=== PATIENT | female | born 1970 | race Caucasian/White ===

== ENCOUNTER 2016-05-02 23:26 | Emergency (ER) | payer OTHER ==
[~2016-05-02] VITALS: Ht 157.5 cm; Wt 60.0 kg
[2016-05-02 23:30] VITALS: BP 141/90; PULSE 98; RESP 15; TEMP 98; O2SAT 99
[2016-05-03 04:17] VITALS: BP 105/55; PULSE 74; RESP 16; TEMP 98.1; O2SAT 99
[2016-05-03 05:30] VITALS: BP 118/72; PULSE 69; RESP 16; TEMP 98.2; O2SAT 99
--- NOTE | 2016-05-03 05:36 | PD ---
HPI Chief Complaint: Neuro Symptoms/ Deficits Time Seen by Provider: 05:34 Travel History International Travel<30 days: No Contact w/Intl Traveler<30days: No Traveled to known affect area: No History of Present Illness HPI 46-year-old female came to the emergency room with history of 2 year ongoing abdominal pain on the right upper quadrant area. Her is here to be seen in the emergency room and patient thought she will get her concern addressed as well. She is also complaining of headache and some stuttering. Vital signs were stable. Pain is nonradiating and localized to the right upper quadrant area. No associated nausea vomiting. Vital signs are stable. [facility] Past Medical History Narrative Medical List of her past medical history as reviewed from the nursing note. Cerebrovascular Accident: Yes ?: Not LMP: 04/14/16 Social History Tobacco Use: Yes Allergies-Medications (Allergen,Severity, Reaction): Coded Allergies: Mobic (Verified Allergy, Intermediate, Burning, 05/02/16) Niacin (Verified Adverse Reaction, Intermediate, 05/02/16) Comments List of her allergies as reviewed from the nursing note. Reported Meds & Prescriptions Reported Meds & Active Scripts Active Reported Glucose (Dextrose) 4 Gm Chew 4 Gm CHEW DIRECTED Prozac (Fluoxetine HCl) 40 Mg Cap 40 Mg PO DAILY Narrative Medication List of her home medications reviewed from the nursing note. Review of Systems Except as stated in HPI: all other systems reviewed are Neg Physical Exam Narrative GENERAL: Awake, alert, anxious, mild distress SKIN: Warm and dry. HEAD: Atraumatic. Normocephalic. EYES: Pupils equal and round. No scleral icterus. No injection or drainage. ENT: No nasal bleeding or discharge. Mucous membranes pink and moist. NECK: Trachea midline. No JVD. CARDIOVASCULAR: Regular rate and rhythm. No murmur appreciated. RESPIRATORY: No accessory muscle use. Clear to auscultation. Breath sounds equal bilaterally. GASTROINTESTINAL: Abdomen soft, non-tender, nondistended. Hepatic and splenic margins not palpable. MUSCULOSKELETAL: No obvious deformities. No clubbing. No cyanosis. No edema. NEUROLOGICAL: Awake and alert. No obvious cranial nerve deficits. Motor grossly within normal limits. Normal speech. PSYCHIATRIC: Appropriate mood and affect; insight and judgment normal. Data Data Last Documented VS Vital Signs Date Time Temp Pulse Resp B/P Pulse Ox O2 Delivery O2 Flow Rate FiO2 2/3/17 05:30 98.2 69 16 118/72 99 05/03/16 04:[address] Brain W/O Iv Contrast(Rout) (05/03/16 ) Electrocardiogram (05/03/16 05:45) Complete Blood Count With Diff (05/03/16 05:45) Comprehensive Metabolic Panel (05/03/16 05:45) Troponin I (05/03/16 05:45) Chest, Single Ap (05/03/16 05:45) Ecg Monitoring (05/03/16 05:45) Iv Access Insert/Monitor (05/03/16 05:45) Oximetry (05/03/16 05:45) Sodium Chloride 0.9% Flush (Ns Flush) (05/03/16 05:45) Labs Laboratory Tests Test 05/03/16 05:48 White Blood Count 8.7 TH/MM3 Red Blood Count 3.75 MIL/MM3 Hemoglobin 12.2 GM/DL Hematocrit 35.3 % Mean Corpuscular Volume 94.3 FL Mean Corpuscular Hemoglobin 32.5 PG Mean Corpuscular Hemoglobin 34.5 % Concent Red Cell Distribution Width 13.4 % Platelet Count 218 TH/MM3 Mean Platelet Volume 10.3 FL Neutrophils (%) (Auto) 53.4 % Lymphocytes (%) (Auto) 36.1 % Monocytes (%) (Auto) 6.9 % Eosinophils (%) (Auto) 3.0 % Basophils (%) (Auto) 0.6 % Neutrophils # (Auto) 4.7 TH/MM3 Lymphocytes # (Auto) 3.2 TH/MM3 Monocytes # (Auto) 0.6 TH/MM3 Eosinophils # (Auto) 0.3 TH/MM3 Basophils # (Auto) 0.1 TH/MM3 CBC Comment DIFF FINAL Differential Comment Sodium Level 141 MEQ/L Potassium Level 4.2 MEQ/L Chloride Level 111 MEQ/L Carbon Dioxide Level 25.2 MEQ/L Anion Gap 5 MEQ/L Blood Urea Nitrogen 18 MG/DL Creatinine 0.78 MG/DL Estimat Glomerular Filtration 80 ML/MIN Rate Random Glucose 85 MG/DL Calcium Level 8.4 MG/DL Total Bilirubin 0.3 MG/DL Aspartate Amino Transf 28 U/L (AST/SGOT) Alanine Aminotransferase 15 U/L (ALT/SGPT) Alkaline Phosphatase 78 U/L Troponin I LESS THAN 0.02 NG/ML Total Protein 6.5 GM/DL Albumin 3.2 GM/DL MDM Medical Decision Making Medical Screen Exam Complete: Yes Emergency Medical Condition: Yes Medical Record Reviewed: Yes Differential Diagnosis Acute pancreatitis, acute cholecystitis, chronic abdominal pain Narrative Course 7:20 AM all the test results are within normal limit especially her liver function tests and lipase. This is a chronic pain for the patient and I am happy with the workup so far. I did not extend to pursue this any further. She needs to go to her primary care and get it addressed as an outpatient. I will discharge this patient. Procedures EKG Prior to Arrival: No Diagnosis Primary Impression: acute on chronic abdominal pain Additional Impression: Abdominal pain Qualified Code: R10.11 - Right upper quadrant abdominal pain Referrals: Primary Care Physician 3 days Additional Instructions: Please return to the ER if the condition worsens or any other new concerns. Otherwise follow-up with your primary care. Med/Other Pt SpecificInfo: No Change to Meds Disposition: 01 DISCHARGE HOME Condition: Stable John Encarnacion MD May 03, 2016 05:36
[2016-05-03] MEDS ORDERED: SODIUM CHLORIDE 0.9% FLUSH 5 ML FLUSH IVF PRN (05:45)
[2016-05-03] MEDS ORDERED: GLUC4CHW CHEW (05:47)
[2016-05-03] MEDS ORDERED: PROZ40CA PO (05:47)
[2016-05-03 06:11] LABS: AUTOMATED NEUTROPHIL # 4.7 TH/MM3 (1.8-7.7); BASOPHIL # 0.1 TH/MM3 (0-0.2); BASOPHIL % 0.6 % (0.0-2.0); EOSINOPHIL # 0.3 TH/MM3 (0-0.4); HEMATOCRIT 35.3 % (35.0-46.0); HEMO FLAGS DIFF FINAL; LYMPH % 36.1 % (9.0-44.0); LYMPHOCYTE # 3.2 TH/MM3 (1.0-4.8); MEAN CELL VOLUME 94.3 FL (80.0-100.0); MEAN CORPUSCULAR HEMOGLOBIN 32.5 PG (27.0-34.0); MEAN CORPUSCULAR HGB CONC 34.5 % (32.0-36.0); MONO % 6.9 % (0.0-8.0); NEUT % 53.4 % (16.0-70.0); PLATELET COUNT 218 TH/MM3 (150-450); RED BLOOD COUNT 3.75 MIL/MM3 (4.00-5.30); RED CELL DISTRIBUTION WIDTH 13.4 % (11.6-17.2); WHITE BLOOD COUNT 8.7 TH/MM3 (4.0-11.0)
--- NOTE | 2016-05-03 06:13 | RADRPT ---
EXAM DATE/TIME: 05/03/2016 05:48 [facility] COMPARISON: No previous studies available for comparison. INDICATIONS : Slurred speech. RADIATION DOSE: 35.85 CTDIvol (mGy) MEDICAL HISTORY : cva SURGICAL HISTORY : None. ENCOUNTER: Initial ACUITY: 1 day PAIN SCALE: 7/10 LOCATION: cranial TECHNIQUE: Multiple contiguous axial images were obtained of the head. Using automated exposure control and adj ustment of the mA and/or kV according to patient size, radiation dose was kept as low as reasonably a chievable to obtain optimal diagnostic quality images. FINDINGS: CEREBRUM: The ventricles are normal. No evidence of midline shift, mass lesion, hemorrhage or acute infarction . No extra-axial fluid collections are seen. POSTERIOR FOSSA: The cerebellum and brainstem are intact. The 4th ventricle is midline. The cerebellopontine angle i s unremarkable. EXTRACRANIAL: There has been right scleral banding. Visualized sinuses are clear. SKULL: The calvaria is intact. No evidence of skull fracture. CONCLUSION: No acute intracranial abnormality is identified. Doron Mckenzie MD on May 03, 2016 at 6:09 Board Certified Radiologist. This report was verified electronically.
--- NOTE | 2016-05-03 06:30 | RADRPT ---
EXAM DATE/TIME: 05/03/2016 05:55 [facility] COMPARISON: No previous studies available for comparison. INDICATIONS : Patient complains of right flank pain. MEDICAL HISTORY : CVA. SURGICAL HISTORY : None. ENCOUNTER: Initial ACUITY: 1 day PAIN SCORE: 4/10 LOCATION: Right Flank FINDINGS: Portable AP view of the chest demonstrates a normal-sized cardiac silhouette. No effusion, consolidat ion, or pneumothorax is visualized. The bones and soft tissues demonstrate no acute abnormality. CONCLUSION: No acute cardiopulmonary abnormality is identified. Doron Mckenzie MD on May 03, 2016 at 6:28 Board Certified Radiologist. This report was verified electronically.
[2016-05-03 06:36] LABS: ALKALINE PHOSPHATASE 78 U/L (45-117); TOTAL BILIRUBIN ADULT 0.3 MG/DL (0.2-1.0)
[2016-05-03 06:52] LABS: ALT (GPT) 15 U/L (10-53); ANION GAP 5 MEQ/L (5-15); AST (GOT) 28 U/L (15-37); BICARBONATE 25.2 MEQ/L (21.0-32.0); BLOOD UREA NITROGEN 18 MG/DL (7-18); CHLORIDE 111 MEQ/L (98-107); GLOMERULAR FILTRATION RATE 80 ML/MIN (>89); POTASSIUM 4.2 MEQ/L (3.5-5.1); SODIUM (NA) 141 MEQ/L (136-145)
--- NOTE | 2016-05-03 13:39 | EKG ---
Date Performed: 05/03/2016 Time Performed: 06:27:14 PTAGE: 46 years EKG: Sinus rhythm NORMAL ECG NO PREVIOUS TRACING DOCTOR: Jayda Tenorio Interpretating Date/Time 05/03/2016 13:35:02
== END 2016-05-03 07:54 | disposition home or self-care (01) ==
LOC: NEPE 23:26
DX: R10.11 Right upper quadrant pain (principal); R51 Headache; Z72.0 Tobacco use; Z86.73 Personal history of transient ischemic attack (TIA), and cerebral infarction without residual deficits
CPT/HCPCS: 70450; 71010; 80053; 84484; 85025; 93005

== ENCOUNTER 2016-06-02 14:21 | Emergency (ER) | payer OTHER ==
[~2016-06-02] VITALS: Ht 157.5 cm; Wt 62.0 kg
[~2016-06-02 14:21] MED LIST: GLUC4CHW CHEW; PROZ40CA PO
[2016-06-02 14:35] VITALS: BP 126/70; PULSE 74; RESP 15; TEMP 98.1; O2SAT 98
[2016-06-02] MEDS ORDERED: FAMO1TAB37 PO (14:36)
[2016-06-02] MEDS ORDERED: BACT800T5 PO (14:37)
[2016-06-02] MEDS ORDERED: CEPH-460 PO (14:37)
--- NOTE | 2016-06-02 14:37 | PD ---
HPI Chief Complaint: Bite or Sting Time Seen by Provider: 14:33 Travel History International Travel<30 days: No Contact w/Intl Traveler<30days: No Traveled to known affect area: No History of Present Illness HPI 46-year-old female presents to the emergency Department with complaint of a possible spider bite to the top of her left foot that she woke up with this morning's. She says she she got bit by a brown recluse. She did not see an actual spider or insect and doesn't know exactly what the wound is from. She reports being up-to-date on her tetanus vaccination. 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 Denies fever, chills, nausea, vomiting. Denies paresthesias, loss of sensation, decreased range of motion, decreased strength to the affected extremity. Has not taken any medications or drainage to alleviate her symptoms. Allergies Timoptic and niacin. No other modifying factors or associated signs and symptoms. PFSH Past Medical History ADHD: Yes Bipolar Disorder: Yes Anxiety: Yes Depression: Yes Cancer: Yes (cervical) High Cholesterol: Yes COPD: Yes Cerebrovascular Accident: Yes Fibromyalgia: Yes Hepatitis: Yes (hep c ) Migraines: Yes Schizophrenia: Yes Triglycerides - High: Yes ?: Not : 6 Para: 3 Miscarriage: 3 Past Surgical History Eye Surgery: Yes Other Surgery: Yes (eptopic ) Social History Alcohol Use: Yes (rarely) Tobacco Use: Yes Substance Use: No Allergies-Medications (Allergen,Severity, Reaction): Coded Allergies: Mobic (Verified Allergy, Intermediate, Burning, 06/02/16) Niacin (Verified Adverse Reaction, Intermediate, 06/02/16) Reported Meds & Prescriptions Reported Meds & Active Scripts Active Keflex (Cephalexin) 500 Mg Cap 500 Mg PO Q6H 7 Days Bactrim DS (Sulfamethoxazole-Trimethoprim) 800-160 Mg Tab 1 Tab PO BID 7 Days Reported Pepcid (Famotidine) 20 Mg Tab 10 Mg PO BID Review of Systems Except as stated in HPI: all other systems reviewed are Neg Physical Exam Narrative GENERAL: Well-nourished, well-developed female patient, in no acute distress SKIN: Warm and dry. Dorsal aspect of left foot with approximately 2 cm diameter scabbed wound that is surrounded by an area of erythema; the wound is without edema or drainage. The surrounding erythema is possible start of infection. Large healed scar noted to the dorsal aspect of the left foot that extends to the left lateral ankle area. Left lower extremity is supple and non- tense with 2+ pedal pulse and sensory intact and without erythema or edema. HEAD: Atraumatic. Normocephalic. EYES: Pupils equal and round. No scleral icterus. No injection or drainage. ENT: Mucosa pink and moist. Airway patent. NECK: Trachea midline. CARDIOVASCULAR: Regular rate. RESPIRATORY: No accessory muscle use. GASTROINTESTINAL: Flat. MUSCULOSKELETAL: No obvious deformities. No clubbing. No cyanosis. No edema. NEUROLOGICAL: Awake and alert. Oriented 3. No obvious cranial nerve deficits. Motor grossly within normal limits. Normal speech. PSYCHIATRIC: Appropriate mood and affect; insight and judgment normal. Data Data Last Documented VS Vital Signs Date Time Temp Pulse Resp B/P Pulse Ox O2 Delivery O2 Flow Rate FiO2 06/02/16 14:35 98.1 74 15 126/70 98 MDM Medical Decision Making Medical Screen Exam Complete: Yes Emergency Medical Condition: Yes Medical Record Reviewed: Yes Differential Diagnosis Spider bite, cellulitis, abrasion Narrative Course 46-year-old female physical exam consistent with a closed wound to the dorsal aspect of the left foot. There is an area of erythema surrounding the wound that may be significant to the beginning of infection. The wound is scabbed over and without drainage or edema. The left lower extremity supple and non- tense with 2+ pedal pulse and sensory intact without erythema or edema. The patient is afebrile and nontoxic-appearing. She denies fever, chills, nausea, vomiting. Patient up-to-date on tetanus vaccination. She does have history of MRSA. I will prescribe the patient Keflex and Bactrim for home. Keflex and Bactrim prescribed for home. Patient verbalizes understanding and agreement with treatment plan. Patient is medically cleared and stable for discharge. Discussed reasons to return to the emergency department. Instructed patient to follow up with primary care provider. Patient agrees with treatment plan. The patients vital signs are stable and the patient is stable for outpatient follow- up and treatment. Patient discharged home, stable and in no acute distress. Diagnosis Primary Impression: Closed wound Referrals: Primary Care Physician Patient Instructions: Acute Wound Care (ED), General Instructions Additional Instructions: Refer to acute wound care instructions in your discharge instructions Keep area clean and dry Topical antibiotic ointment as directed and as needed for wound care Follow up with primary care provider Return to the emergency department immediately with worsening of symptoms Med/Other Pt SpecificInfo: Prescription(s) given Scripts Cephalexin (Keflex)500 Mg [id number] Mg PO Q6H 7 Days Ref 0 Prov:Leila Sampson 06/02/16 Sulfamethoxazole-Trimethoprim (Bactrim DS)800-160 Mg Tab1 Tab PO BID 7 Days Ref 0 Prov:Leila Sampson 06/02/16 Disposition: 01 DISCHARGE HOME Condition: Stable Leila Sampson Jun 02, 2016 14:37
== END 2016-06-02 14:47 | disposition home or self-care (01) ==
LOC: NEPB 14:21
DX: L98.9 Disorder of the skin and subcutaneous tissue, unspecified (principal)
CPT/HCPCS: 99282

== ENCOUNTER 2016-06-07 07:20 | Emergency (ER) | payer OTHER ==
[~2016-06-07] VITALS: Ht 157.5 cm; Wt 80.0 kg
[~2016-06-07 07:20] MED LIST changes: +BACT800T5 PO; +CEPH-460 PO; +FAMO1TAB37 PO; -GLUC4CHW CHEW; -PROZ40CA PO
[2016-06-07 07:22] VITALS: BP 111/71; PULSE 104; RESP 16; TEMP 98.1; O2SAT 98
--- NOTE | 2016-06-07 07:40 | PD ---
HPI Chief Complaint: Cold / Flu Symptoms Time Seen by Provider: 07:40 Travel History International Travel<30 days: No Contact w/Intl Traveler<30days: No Traveled to known affect area: No History of Present Illness HPI 46-year-old female presents to the emergency Department with complaint of nasal congestion, cough 4 days. She has history of COPD and reports chest tightness and shortness of breath with coughing exacerbations. Patient has albuterol inhaler but has not been using it. Reports subjective fever and chills. Reports body aches. Has not taken her temperature and cannot report MAXIMUM TEMPERATURE. Denies nausea, vomiting, abdominal pain. Denies history of DVT/ PE. Denies leg edema. Denies hemoptysis. Denies recent travel, trauma, hospitalization, surgery. Denies oral contraception. Has not taken any medications or tried any treatments to alleviate her symptoms. No one else sick like her. Did not receive the influenza vaccine. Reports tobacco use daily. Allergies to Motrin, niacin. History of COPD and hypoglycemia. Does not have an established primary care provider. No other modifying factors or associated signs and symptoms. PFSH Past Medical History ADHD: Yes Bipolar Disorder: Yes Anxiety: Yes Depression: Yes Cancer: Yes (cervical) High Cholesterol: Yes COPD: Yes Cerebrovascular Accident: Yes Fibromyalgia: Yes Hepatitis: Yes (hep c ) Migraines: Yes Schizophrenia: Yes Triglycerides - High: Yes ?: Not LMP: 06/07/16 : 6 Para: 3 Miscarriage: 3 Past Surgical History Eye Surgery: Yes Other Surgery: Yes (eptopic ) Social History Alcohol Use: Yes (rarely) Tobacco Use: Yes Substance Use: No Allergies-Medications (Allergen,Severity, Reaction): Coded Allergies: Mobic (Verified Allergy, Intermediate, Burning, 06/02/16) Niacin (Verified Adverse Reaction, Intermediate, 06/02/16) Reported Meds & Prescriptions Reported Meds & Active Scripts Active Tessalon Perles (Benzonatate) 100 Mg Cap 100 Mg PO TID PRN Nasonex Nasal [place] (Mometasone Furoate) 50 Mcg/Act Naspr 2 [place] EACH NARE DAILY PRN Deltasone (Prednisone) 20 Mg Tab 40 Mg PO DAILY 4 Days start 06/08/16 Proair Hfa 8.5 GM Inh (Albuterol Sulfate) 90 Mcg/Act Aer 2 Puff INH Q4-6H PRN 108 mcg/actuation Keflex (Cephalexin) 500 Mg Cap 500 Mg PO Q6H 7 Days Bactrim DS (Sulfamethoxazole-Trimethoprim) 800-160 Mg Tab 1 Tab PO BID 7 Days Reported Pepcid (Famotidine) 20 Mg Tab 10 Mg PO BID Review of Systems Except as stated in HPI: all other systems reviewed are Neg Physical Exam Narrative GENERAL: Well-nourished, well-developed patient, in no acute distress; afebrile , nontoxic-appearing SKIN: Warm and dry. No rash. HEAD: Atraumatic. Normocephalic. EYES: Pupils equal and round at 3 mm with brisk reaction. No scleral icterus. No injection or drainage. PERRLA. ENT: Mucosa pink and moist. No erythema or exudates. No uvular edema. No uvular , palatal, or tonsillar deviation. Airway patent. Nasal congestion noted. EARS: Bilateral pinnae and external canals appear within normal limits. Bilateral tympanic membranes without erythema, dullness or perforation. NECK: Trachea midline. No lymphadenopathy. CARDIOVASCULAR: Regular rate and rhythm. No murmur appreciated. RESPIRATORY: No accessory muscle use. Clear to auscultation and decreased in bilateral bases. Breath sounds equal bilaterally. GASTROINTESTINAL: Abdomen soft, non-tender, nondistended. Hepatic and splenic margins not palpable. Bowel sounds are active 4 quadrants. MUSCULOSKELETAL: No obvious deformities. No clubbing. No cyanosis. No edema. NEUROLOGICAL: Awake and alert. Oriented 3. No obvious cranial nerve deficits. Motor grossly within normal limits. Normal speech. Moves all extremities. 5/5 strength to all extremities. PSYCHIATRIC: Appropriate mood and affect; insight and judgment normal. Data Data Last Documented VS Vital Signs Date Time Temp Pulse Resp B/P Pulse Ox O2 Delivery O2 Flow Rate FiO2 06/07/16 07:22 98.1 104 16 111/71 98 Orders Prednisone (Deltasone) (06/07/16 07:45) Albuterol Neb (Albuterol Neb) (06/07/16 07:45) Influenzae A/B Antigen (06/07/16 07:40) MDM Medical Decision Making Medical Screen Exam Complete: Yes Emergency Medical Condition: Yes Medical Record Reviewed: Yes Differential Diagnosis Influenza, COPD exacerbation, bronchitis, viral illness, pneumonia, upper respiratory infection Narrative Course 36-year-old female physical examination consistent with cold/flu symptoms and possible mild COPD exacerbation versus bronchitis. Afebrile and nontoxic- appearing. The patient is in no acute distress and without retractions or tachypnea. Oxygen saturation is 98% on room air. Lungs are clear and equal and decreased in bilateral bases. Patient reports chest tightness and shortness of breath. The patient denies history of PE or DVT; denies recent surgery or trauma, hemoptysis, exogenous estrogen and, leg edema. The patient has no present criteria for pulmonary embolism; using the PERC rule for pulmonary embolism there is no need for further workup for PE. Deltasone and albuterol nebulizer ordered. Influenza ordered. 0831: Influenza positive. Discussed viral illness and symptom treatment with patient. Patient reports improvement in symptoms after breathing treatment. She denies chest tightness or shortness of breath. Lungs are clear and equal throughout with improved air flow to bilateral bases. Heart rate recheck approximately 90 bpm. Pro-air inhaler, Deltasone, Tessalon Perles, Nasonex nasal spray, prescribed for home. Patient verbalizes understanding and agreement with treatment plan. Patient is medically cleared and stable for discharge. Discussed reasons to return to the emergency department. Instructed patient to follow up with primary care provider. Patient agrees with treatment plan. The patients vital signs are stable and the patient is stable for outpatient follow-up and treatment. Patient discharged home, stable and in no acute distress. Diagnosis Primary Impression: Influenza B Additional Impression: Influenzal bronchitis Referrals: Primary Care Physician Patient Instructions: Acute Bronchitis (ED), General Instructions, Influenza ( ED), Safe Use of Cough and Cold Medicines (ED) Departure Forms: Tests/Procedures, Work Release Special Instructions: May return to work when fever free for 24 hours Additional Instructions: Use Albuterol inhaler as prescribed Take oral steroids as prescribed and complete full course Use Tessalon Perles as prescribed to decrease coughing spasms [id number]-[id number] decongestants or antihistamines as directed and as needed for symptom management Your cough can last 4-6 weeks Drink plenty of fluids to prevent dehydration Use hot air humidifier to decrease cough exacerbation Turn off ceiling fans and sleep with head of bed elevated Avoid triggers such as second hand smoke, dust, known allergens Follow-up with your primary care provider Return to the emergency department immediately with worsening of symptoms Med/Other Pt SpecificInfo: Prescription(s) given Scripts Benzonatate (Tessalon Perles)100 Mg [id number] Mg PO TID PRN (COUGH) #20 CAP Ref 0 Prov:Leila Sampson 06/07/16 Mometasone Nasal [place] (Nasonex Nasal [place])50 Mcg/Act Naspr2 [place] EACH NARE DAILY PRN (NASAL CONGESTION) #1 BOTTLE Ref 0 Prov:Leila Sampson 06/07/16 Prednisone (Deltasone)20 Mg Tab40 Mg PO DAILY 4 Days Ref 0 start 06/08/16 Prov:Leila SampsonP 06/07/16 Albuterol 8.5 GM Inh (Proair Hfa 8.5 GM Inh)90 Mcg/Act Aer2 Puff INH Q4-6H PRN ( SOB/WHEEZING) #1 INHALER Ref 0 108 mcg/actuation Prov:Leila Sampson 06/07/16 Disposition: 01 DISCHARGE HOME Condition: Stable Leila Sampson Jun 07, 2016 07:40
[2016-06-07] MEDS ORDERED: RESP: ALBUTEROL 2.5 MG/3 ML NEB (SCH) INH ONE (07:45)
[2016-06-07] MEDS ORDERED: predniSONE 20 MG TAB PO ONE (07:45)
[2016-06-07] MEDS ORDERED: AZIT500T2 PO (07:59)
[2016-06-07] MEDS ORDERED: PRED-503 PO (07:59)
[2016-06-07] MEDS ORDERED: BENZ100 PO (07:59)
[2016-06-07] MEDS ORDERED: ALBUAER3 INH (07:59)
[2016-06-07] MEDS ORDERED: MOME17I EACH NARE (07:59)
== END 2016-06-07 08:48 | disposition home or self-care (01) ==
LOC: NEPB 07:20
DX: J10.1 Influenza due to other identified influenza virus with other respiratory manifestations (principal); J20.8 Acute bronchitis due to other specified organisms; E78.00 Pure hypercholesterolemia, unspecified; J44.9 Chronic obstructive pulmonary disease, unspecified; B19.20 Unspecified viral hepatitis C without hepatic coma; Z72.0 Tobacco use
CPT/HCPCS: 87804; 94664; 99283; J7512; J7613

== ENCOUNTER 2017-01-17 18:25 | Emergency (ER) | payer MEDICAID, OTHER ==
[~2017-01-17] VITALS: Ht 160 cm; Wt 64.2 kg
[~2017-01-17 18:25] MED LIST changes: +ALBUAER3 INH; +BENZ100 PO; +MOME17I EACH NARE; +PRED-503 PO
[2017-01-17 18:27] VITALS: BP 141/92; PULSE 106; RESP 16; TEMP 98.5; O2SAT 100
--- NOTE | 2017-01-17 18:41 | PD ---
HPI Chief Complaint: Complaint Time Seen by Provider: 18:35 Travel History International Travel<30 days: No Contact w/Intl Traveler<30days: No Traveled to known affect area: No History of Present Illness HPI 47-year-old female presents to emergency department for cloudy urine, dysuria, and lower abdominal pain for 3 months. States she was using tea bags in her vaginal area for the discomfort but has not helped. Denies fever, chills, hematuria, back pain, illicit drug use. States her lower abdominal pain is constant, achy. She complains of painful urination and a white vaginal discharge when she urinates. Admits to some dyspareunia. She has chronic IBS with nausea, chronic 'low blood sugar'. Pt has endoscopy scheduled but does not know when. She is and this is her only sexual partner. PFSH Past Medical History Hx Anticoagulant Therapy: Yes (BABY ASA DAILY) ADHD: Yes Bipolar Disorder: Yes Anxiety: Yes Depression: Yes Cancer: Yes (cervical) Cardiovascular Problems: Yes (CHOL) High Cholesterol: Yes COPD: Yes Cerebrovascular Accident: Yes (TIA) Fibromyalgia: Yes Hepatitis: Yes (hep c ) Migraines: Yes Schizophrenia: Yes Triglycerides - High: Yes ?: Not : 6 Para: 3 Miscarriage: 3 Past Surgical History Eye Surgery: Yes Hysterectomy: Yes Other Surgery: Yes (eptopic ) Social History Alcohol Use: Yes (rarely) Tobacco Use: Yes Substance Use: No Allergies-Medications (Allergen,Severity, Reaction): Coded Allergies: meloxicam (Unverified Allergy, Intermediate, Burning, 01/17/17) niacin (Unverified Adverse Reaction, Intermediate, 01/17/17) Reported Meds & Prescriptions Reported Meds & Active Scripts Active Macrobid (Nitrofurantoin Monoh/Nitrofur Macro) 100 Mg Cap 100 Mg PO BID 5 Days Metronidazole Vaginal Gel 0.75 % Gel 1 Appl VAGINAL HS 5 Days Diflucan (Fluconazole) 150 Mg Tab 150 Mg PO ONCE May repeat if 5 days if irritation persists. Review of Systems Except as stated in HPI: all other systems reviewed are Neg Physical Exam Narrative GENERAL: Well-nourished, well-developed patient. SKIN: Focused skin assessment warm/dry. HEAD: Normocephalic. EYES: No scleral icterus. No injection or drainage. NECK: Supple, trachea midline. No JVD or lymphadenopathy. CARDIOVASCULAR: Regular rate and rhythm without murmurs, gallops, or rubs. RESPIRATORY: Breath sounds equal bilaterally. No accessory muscle use. GENITOURINARY: Normal external genitalia without lesions or erythema. Vaginal vault without blood. Cervical os was closed. No cervical motion tenderness. Uterus nontender and nonenlarged. Bilateral adnexa nontender without masses. Patches of white exudate on vaginal crum, green/ yellow discharge also in vaginal vault. GASTROINTESTINAL: Abdomen soft, non-tender, nondistended. Mild TTP to mid pelvic region MUSCULOSKELETAL: No cyanosis, or edema. BACK: Nontender without obvious deformity. No CVA tenderness. Data Data Last Documented VS Vital Signs Date Time Temp Pulse Resp B/P (MAP) Pulse Ox O2 Delivery O2 Flow Rate FiO2 01/17/17 18:27 98.5 106 16 141/92 (108) 100 Orders Orders Urinalysis - C+S If Indicated (01/17/17 18:30) Ed Discharge Order (01/17/17 19:48) Gc And Chlamydia Pcr (01/17/17 19:49) Wet Prep Profile (01/17/17 19:49) Labs Laboratory Tests Test 01/17/17 18:30 01/17/17 19:50 Urine Collection Type VOIDED Urine Color YELLOW Urine Turbidity CLOUDY Urine pH 5.5 Urine Specific [place] 1.025 Urine Protein NEG mg/dL Urine Glucose (UA) NEG mg/dL Urine Ketones NEG mg/dL Urine Occult Blood NEG Urine Nitrite NEG Urine Bilirubin NEG Urine Leukocyte Esterase SMALL Urine WBC 6-8 /hpf Urine Squamous Epithelial Cells >8 /hpf Urine Bacteria FEW /hpf Urine Yeast (Budding) RARE Microscopic Urinalysis Comment CULT NOT INDICATED Clue Cells (Wet Prep) NONE SEEN Vaginal Trichomonas (Wet Prep) NONE SEEN Vaginal Yeast (Wet Prep) NONE SEEN MDM Medical Decision Making Medical Screen Exam Complete: Yes Emergency Medical Condition: Yes Differential Diagnosis UTI versus cystitis versus pelvic inflammatory disease versus kidney stones Narrative Course 47 female presents to emergency department with lower abdominal pain, dysuria and cloudy urine for 3 months. Last pelvic exam in 2016 for regular check up. Physical exam: Vaginal exam with white patches c/w vaginal candidiasis. yellow- green discharge with fishy odor. No CVA tenderness UA consistent with a urinary tract infection- macrobid Metronidazole vaginal for BV Vaginal candidiasis- Fluconazole Pt advised to follow up with PCP for further treatment. Diagnosis Primary Impression: Bacterial vaginosis Additional Impressions: Vaginal candidiasis Cystitis Referrals: Primary Care Physician Additional Instructions: Take medications as prescribed Continue to drink plenty of water to flush your kidneys and urinary tract Use tylenol or motrin per package instructions for your discomfort. If you develop fever/ shills, or worsening pain, return to the ED for further treatment and evaluation. Follow up with your primary care physician within 3 days. Scripts Nitrofurantoin Monohydrate Macrocrystals (Macrobid) 100 Mg Cap 100 MG PO BID for Infection for 5 Days, #10 CAP 0 Refills Prov: Paddy Schmidt MD 01/17/17 Metronidazole Vaginal Gel (Metronidazole Vaginal Gel) 0.75 % Gel 1 APPL VAGINAL HS for Infection for 5 Days, GM 0 Refills Prov: Paddy Schmidt MD 01/17/17 Fluconazole (Diflucan) 150 Mg Tab 150 MG PO ONCE for Infection, #2 TAB 0 Refills May repeat if 5 days if irritation persists. Prov: Paddy Schmidt MD 01/17/17 Disposition: 01 DISCHARGE HOME Condition: Stable [place] Jan 17, 2017 18:41
[2017-01-17 18:52] LABS: BLOOD, URINE NEG (NEG); GLUCOSE,URINE NEG (NEG); KETONE, URINE NEG (NEG); NITRITE,URINE NEG (NEG); PH, URINE 5.5 (5.0-8.5)
[2017-01-17 19:02] LABS: METHOD OF COLLECTION VOIDED; URINE COLOR YELLOW (YELLW/STRAW)
[2017-01-17 19:04] LABS: BACTERIA, URINE FEW /hpf; SQUAMOUS EPITHELIAL CELL URINE >8 /hpf (0-5)
[2017-01-17 19:05] LABS: COMMENT (UR) CULT NOT INDICATED; CULTURE IF INDICATED CULT NOT INDICATED
[2017-01-17] MEDS ORDERED: DIFL150T PO (19:43)
[2017-01-17] MEDS ORDERED: METR0.7512 VAGINAL (19:43)
[2017-01-17] MEDS ORDERED: MACR100C2 PO (19:43)
[2017-01-18 11:17] LABS: CHLAMYDIA PCR NOT DETECTED (NOT DETECT); NEISSERIA PCR NOT DETECTED (NOT DETECT)
== END 2017-01-17 19:59 | disposition home or self-care (01) ==
LOC: PHEFT 18:25
DX: N76.0 Acute vaginitis (principal); B37.3 Candidiasis of vulva and vagina; N30.90 Cystitis, unspecified without hematuria
CPT/HCPCS: 81001; 87210; 87491; 87591; 99284